=== PATIENT | female | born 1950 | race Caucasian/White ===

== ENCOUNTER 2017-07-16 05:42 | Inpatient (IN) | payer OTHER ==
[2017-06-20 15:40] VITALS: BMI 29.0
--- NOTE | 2017-06-20 16:11 | PAT Medication Instructions ---
Service Date Jun 20, 2017. Current Home Medication List Albuterol Hfa (Ventolin Hfa), 2 PUFFS INH Q6H PRN for PRN Calcium W/ Vitamins D & K (Viactiv), 1 TAB PO BID Fluoxetine (Prozac), 20 MG PO HS Ibuprofen (Advil), 400 MG PO PRN Medication Instructions For Your Scheduled Surgery - Hold the following medications 7 days prior to surgery per your surgeon's instructions: Ibuprofen (Advil), 400 MG PO PRN - Hold the following medications the morning of surgery: Calcium W/ Vitamins D & K (Viactiv), 1 TAB PO BID - Take the following medications the morning of surgery with a sip of water: Albuterol Hfa (Ventolin Hfa), 2 PUFFS INH Q6H PRN for PRN (if needed, and bring it with you to the hospital) - Take the following medications as scheduled the night before surgery: Albuterol Hfa (Ventolin Hfa), 2 PUFFS INH Q6H PRN for PRN (if needed) Calcium W/ Vitamins D & K (Viactiv), 1 TAB PO BID Fluoxetine (Prozac), 20 MG PO HS If you have any questions please call us at [phone] or [phone] or [phone]
[2017-06-20 16:41] LABS: BASO % 0.7 %; BASO ABS # 0.05 K/uL (0-0.2); EOS ABS # 0.15 K/uL (0-0.5); HEMATOCRIT 42.4 % (37-47); HEMOGLOBIN 13.7 g/dL (12.0-16.0); IG# 0.01 K/uL (0.00-0.02); LYMPH % 35.6 %; LYMPH ABS # 2.64 K/uL (1.2-3.4); MEAN CELL VOLUME 86.4 fL (80-100); MEAN CORPUSCULAR HEMOGLOBIN 27.9 pg (25-34); MEAN CORPUSCULAR HGB CONC 32.3 g/dl (32-36); MEAN PLATELET VOLUME 10.9 fL (7.4-10.4); MONO % 7.7 %; MONO ABS # 0.57 K/uL (0.11-0.59); NEUT % 53.9 %; PLATELET COUNT 249 K/uL (130-400); RED CELL DISTRIBUTION WIDTH CV 13.2 % (11.5-14.5); RED CELL DISTRIBUTION WIDTH SD 42.1 fL (36.4-46.3); WHITE BLOOD COUNT 7.42 K/uL (4.8-10.8)
[2017-06-20 16:50] LABS: POTASSIUM 4.4 mmol/L (3.5-5.1)
--- NOTE | 2017-06-20 16:50 | DIAGNOSTIC IMAGING REPORT ---
TWO VIEW CHEST CLINICAL HISTORY: Preoperative examination. FINDINGS: PA and lateral chest radiographs are obtained. No prior studies are available for comparison at the time of dictation. The cardiomediastinal silhouette is unremarkable. There is mild atherosclerotic calcification of the thoracic aorta. The lungs and pleural spaces are clear. There is no pneumothorax. The skeletal structures are osteopenic. The bony thorax appears intact. IMPRESSION: No active disease in the chest. Electronically signed by: Lavon Nur M.D. 06/20/2017 4:49 PM Dictated Date/Time: 06/20/2017 4:49 PM
[2017-06-20 17:14] LABS: CALCIUM 8.7 mg/dl (8.5-10.1); CREATININE 0.99 mg/dl (0.60-1.20)
[~2017-07-16] VITALS: Ht 152.4 cm; Wt 67.3 kg
[2017-07-16] VITALS (10 sets, daily range): BP systolic 105–157; BP diastolic 60–94; PULSE 60–74; TEMP 36.4–36.9; O2SAT 94–100; Ht 152.4 cm; Wt 67.3 kg
[~2017-07-16 05:42] MED LIST: CALC8.5C PO; FLUO20CA35 PO; IBUP-1050 PO; VNTHFA/IN INH
[2017-07-16] MEDS ORDERED: CEFAZOLIN 1000MG IV PUSH 7.5 ML IV SCH (06:00)
[2017-07-16] MEDS ORDERED: LACTATED RINGER'S 1000ML 1,000 ML IV SCH (06:00)
[2017-07-16] MEDS ORDERED: MIDAZOLAM HCL 1 MG/ML 2ML VIAL ONE (06:47)
[2017-07-16] MEDS ORDERED: FENTANYL CITRATE INJ 50 MCG/1 ML 2 ML VIAL ONE ×3 (06:47→08:50)
[2017-07-16] MEDS ORDERED: BUPIVACAINE/EPINEPHRINE 0.5% MPF 1:200,000 30 ML VIAL ONE (06:52)
[2017-07-16] MEDS ORDERED: BACITRACIN 50000 UNIT VIAL ONE (06:52)
--- NOTE | 2017-07-16 07:21 | History & Physical Bridge Note ---
H&P Re-Evaluation Bridge Note: I have examined the patient, reviewed the History & Physical and in the interval since the performance of the History & Physical I have noted the following changes of clinical significance: No changes noted
--- NOTE | 2017-07-16 07:22 | History and Physical ---
History & Physical Date Jul 16, 2017. 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, 07/16/17) Home Medications Scheduled Calcium W/ Vitamins D & K (Viactiv), 1 TAB PO BID Fluoxetine (Prozac), 20-40 MG PO HS Ibuprofen (Advil), 400 MG PO PRN Scheduled PRN Albuterol Hfa (Ventolin Hfa), 2 PUFFS INH Q6H PRN for PRN Physical Examination Skin: warm/dry, no rash Eyes: normal inspection, EOMI, sclerae normal ENT: normal ENT inspection, pharynx normal Head: normocephalic, atraumatic Neck: supple, no adenopathy, trachea midline Respiratory/Chest: lungs clear, normal breath sounds, no respiratory distress Cardiovascular: regular rate, rhythm, no edema, no murmur Abdomen / GI: normal bowel sounds, non tender Back: normal inspection Extremities: normal inspection, normal range of motion Neurologic/Psych: no motor/sensory deficits, alert, normal reflexes, oriented x 3 Diagnosis Lumbar spinal stenosis Plan of Treatment L3-S1 decompression and fusion
[2017-07-16] MEDS ORDERED: HYDROmorphone INJ 2 MG/ML SYR/VIAL ONE ×2 (07:54→09:53)
[2017-07-16] MEDS ORDERED: ATROPINE SULFATE 0.1 MG/ML 5ML SYR IV PRN (08:15)
[2017-07-16] MEDS ORDERED: FENTANYL CITRATE INJ 50 MCG/1 ML 2 ML VIAL IV PRN (08:15)
[2017-07-16] MEDS ORDERED: EpHEDrine SULFATE INJ 50 MG/ML AMP IV PRN (08:15)
[2017-07-16] MEDS ORDERED: ONDANSETRON INJ 2 MG/ML 2 ML VIAL IV PRN (08:15)
[2017-07-16] MEDS ORDERED: PROMETHAZINE HCL INJ 6.25 MG in SODIUM CHLORIDE 0.9% 50ML 50 ML IV PRN (08:15)
[2017-07-16] MEDS ORDERED: HYDROmorphone INJ 0.5 MG/0.5 ML SYR IV PRN (08:15)
[2017-07-16] MEDS ORDERED: LIDOCAINE HCL 2% 2 ML VIAL (20MG/ML) ONE (08:34)
[2017-07-16] MEDS ORDERED: ONDANSETRON INJ 2 MG/ML 2 ML VIAL ONE ×2 (08:34→09:58)
[2017-07-16] MEDS ORDERED: RANITIDINE HCL 25 MG/ML INJ ONE (08:34)
[2017-07-16] MEDS ORDERED: DEXAMETHASONE SOD INJ 4 MG/ML VIAL ONE (08:34)
[2017-07-16] MEDS ORDERED: PROPOFOL IV EMULSION 10 MG/ML 20 ML VIAL IV ONE (08:34)
[2017-07-16] MEDS ORDERED: FLOSEAL HEMOSTATIC MATRIX 10ML TOP ONE (09:39)
--- NOTE | 2017-07-16 09:48 | DIAGNOSTIC IMAGING REPORT ---
LUMBAR SPINE 2 OR 3 VIEW CLINICAL HISTORY: 67 years-old Female presenting with L3-S1 DECOMPRESSION/FUSION. TECHNIQUE: 2 fluoroscopic spot image(s) obtained as part of an intraoperative procedure. COMPARISON: None. FINDINGS/IMPRESSION: Bilateral transpedicular screw and sania fixation of L3-S1 with interbody spacer at L4-5. Slight anterolisthesis of L4 on L5 suggested. Laminectomy defects of L4-5. Please see surgical report for further details. Fluoroscopy dosage (mGy): 26.25. Fluoroscopy time: 30.3 seconds. Number of fluoroscopic spot images: 2. Electronically signed by: Nemesio Bautista M.D. 07/16/2017 9:47 AM Dictated Date/Time: 07/16/2017 9:46 AM
[2017-07-16] MEDS ORDERED: ESMOLOL HCL 10 MG/ML 10 ML VIAL ONE (09:58)
[2017-07-16] MEDS ORDERED: GLYCOPYRROLATE INJ 0.2 MG/ML VIAL ONE (09:58)
[2017-07-16] MEDS ORDERED: NEOSTIGMINE METHYLSULFATE 1 MG/ML 10ML VIAL ONE (09:58)
[2017-07-16] MEDS ORDERED: SODIUM CHLORIDE 0.9% 1000ML 1,000 ML IV SCH (09:58)
--- NOTE | 2017-07-16 09:58 | [facility] Operative Report ---
Operative Report Operative Date Jul 16, 2017. Pre-Operative Diagnosis Lumbar Spinal Stenosis L3-S1 Post-Operative Diagnosis Lumbar Spinal Stenosis L3-S1 Procedure(s) Performed 1. Lumbar decompression medial facetectomies foraminotomies L3-4 L4-5 L5-S1. #2 posterior spinal fusion L3-4 L4-5 L5-S1. #3 placement of posterior segmental instrumentation L3-4 L4-5 L5-S1. #4 interbody fusion L4-5. #5 placement peek cage t 10 x 22 mm at L4-5. #6 history of locally harvested Deleon's allograft in the posterior lateral gutters. #7 placement InFUSE collagen sponge, with master graft in the posterior gutters and ostial amp bone graft in the interbody space. Surgeon Dr. Lee Solid Waste Engineer Surgeon(s) none Estimated Blood Loss 400 ml Findings Severe spinal stenosis Specimens none per surgeon Anesthesia Type General Description of Procedure Patient was met with preoperatively case discussed all questions addressed. After informed consent obtained patient was taken back to the operative suite underwent intubation and placed in the prone position on the Issac table on top of the Mateo frame. All bony prominences were well-padded eyes inspected to ensure no external pressure placed upon the. This point the lumbar spine was prepped and draped in the normal sterile fashion. Sharp dissection with the assistance of Bovie cautery was performed down to and exposing the lamina and transverse processes of L3-L4-L5 and sacral ala bilaterally. From a caudal cephalad fashion complete laminectomy of L5 L4 and L3 was performed addressing severe lateral recess and foraminal stenosis. Pedicle screws were then placed in L3-L4-L5 S1 levels bilaterally and the appropriate size sania placed. Through a transforaminal approach on the right complete discectomy of L4-5 was performed endplates created to subcortical bleeding bone and a 10 x 22 mm peek cage filled with OsteoSet bone graft tapped in position. The rods were then locked in final position bilaterally. Transverse processes of all 3 L4-L5 and sacral ala burred to subcortical bleeding bone. Infuse collagen sponge mass graft local harvested Deleon's allograft was placed in the posterior lateral gutters. 15 round YANDEL drain inserted. Incision closed with 1 Vicryl fascia 2-0 Vicryl simultaneously 4-0 Monocryl for final skin closure Steri-Strips sterile dressings placed. Patient will continue to PACU stable condition. I attest to the content of the Intraoperative Record and any orders documented therein. Any exceptions are noted below.
[2017-07-16] MEDS ORDERED: PROMETHAZINE HCL INJ 12.5 MG in SODIUM CHLORIDE 0.9% 50ML 50 ML IV PRN (10:00)
[2017-07-16] MEDS ORDERED: LORAZEPAM INJ 0.5 MG in SYRINGE 0.75 ML IV PRN (10:00)
[2017-07-16] MEDS ORDERED: BISACODYL 10 MG SUPP PR PRN (10:00)
[2017-07-16] MEDS ORDERED: hydrOXYzine HCL 25 MG TAB PO PRN (10:00)
[2017-07-16] MEDS ORDERED: DO NOT ADMINISTER PNEUMOCOCCAL VACCINE PRN (10:00)
[2017-07-16] MEDS ORDERED: ACETAMINOPHEN IV 100 ML IV PRN (10:00)
[2017-07-16] MEDS ORDERED: DO NOT ADMINISTER FLU VACCINE PRN (10:00)
[2017-07-16] MEDS ORDERED: MAGNESIUM HYDROXIDE SUSP 30 ML UDC PO PRN (10:00)
[2017-07-16] MEDS ORDERED: SOD PHOSPHATE/SOD BIPHOSPHATE ENEMA 132 ML BTL PR PRN (10:00)
[2017-07-16] MEDS ORDERED: FAMOTIDINE 20 MG TAB PO PRN (10:00)
[2017-07-16] MEDS ORDERED: METOCLOPRAMIDE HCL INJ 5 MG/ML 2 ML VIAL IV PRN (10:00)
[2017-07-16] MEDS ORDERED: LORAZEPAM 0.5 MG TAB PO PRN (10:00)
[2017-07-16] MEDS ORDERED: ACETAMINOPHEN 500 MG TAB PO PRN (10:00)
[2017-07-16] MEDS ORDERED: ALBUTEROL HFA 8 GM INHALER INH PRN (10:00)
[2017-07-16] MEDS ORDERED: ALUMINUM/MAGNESIUM SUSP 30 ML UDC PO PRN (10:00)
[2017-07-16] MEDS ORDERED: NALOXONE HCL 0.4 MG/1 ML VIAL/CARP IV PRN ×2 (10:00)
[2017-07-16] MEDS ORDERED: HYDROmorphone HCL 0.5MG/ML 50 ML CASSETTE ONE (10:09)
[2017-07-16] MEDS: HYDROmorphone HCL 0.5MG/ML 50 ML CASSETTE IV PRN ×3 (10:22→22:20)
--- NOTE | 2017-07-16 10:46 | Anesthesiology Progress Note ---
Anesthesia Post Op Note Date & Time Jul 16, 2017 at 10:45 Vital Signs Pain Intensity: 5 Vital Signs Past 12 Hours Date Time Temp Pulse Resp B/P (MAP) Pulse Ox O2 Delivery O2 Flow Rate FiO2 07/16/17 10:30 74 16 137/79 100 Nasal Cannula 4 07/16/17 10:20 81 16 162/77 100 Oxymask 10 07/16/17 10:10 75 16 153/75 96 Oxymask 10 07/16/17 10:04 36. 96 16 156/80 96 Oxymask 10 07/16/17 06:18 36.6 60 20 157/94 99 Room Air Notes Mental Status: alert / awake / arousable, participated in evaluation Pt Amnestic to Procedure: Yes Nausea / Vomiting: adequately controlled Pain: adequately controlled Airway Patency, RR, SpO2: stable & adequate BP & HR: stable & adequate Hydration State: stable & adequate Anesthetic Complications: no major complications apparent
[2017-07-16] MEDS: SODIUM CHLORIDE 0.9% 1000ML 1,000 ML IV SCH ×3 (12:23→22:42)
[2017-07-16] MEDS: CEFAZOLIN IV 1,000 MG in SYRINGE 0 ML IV SCH ×2 (15:34→23:50)
[2017-07-16] MEDS: ONDANSETRON INJ 2 MG/ML 2 ML VIAL IV PRN (17:30)
[2017-07-16] MEDS: DOCUSATE SODIUM/SENNA 50/8.6MG TAB PO SCH (21:00)
[2017-07-16] MEDS: FLUOXETINE HCL 20 MG CAP PO SCH (21:00)
[2017-07-17 03:03] VITALS: BP 111/64; PULSE 85; TEMP 36.9; O2SAT 97
[2017-07-17] MEDS ORDERED: DC PCA SCH (06:00)
[2017-07-17] MEDS ORDERED: HYDROmorphone INJ 0.5 MG/0.5 ML SYR IV PRN (06:00)
[2017-07-17] MEDS ORDERED: HYDROmorphone INJ 2 MG/ML SYR/VIAL IV PRN (06:00)
[2017-07-17] MEDS ORDERED: NURSING DECISION MEDICATION ORDER SCH (06:00)
[2017-07-17 06:25] LABS: BASO % 0.1 %; BASO ABS # 0.01 K/uL (0-0.2); EOS % 0.2 %; EOS ABS # 0.02 K/uL (0-0.5); HEMATOCRIT 28.7 % (37-47); HEMOGLOBIN 9.4 g/dL (12.0-16.0); IG# 0.02 K/uL (0.00-0.02); LYMPH % 14.6 %; LYMPH ABS # 1.46 K/uL (1.2-3.4); MEAN CELL VOLUME 86.2 fL (80-100); MEAN CORPUSCULAR HEMOGLOBIN 28.2 pg (25-34); MEAN CORPUSCULAR HGB CONC 32.8 g/dl (32-36); MEAN PLATELET VOLUME 10.8 fL (7.4-10.4); MONO % 9.3 %; MONO ABS # 0.93 K/uL (0.11-0.59); NEUT % 75.6 %; NEUT ABS # 7.57 K/uL (1.4-6.5); PLATELET COUNT 187 K/uL (130-400); RED CELL DISTRIBUTION WIDTH CV 13.8 % (11.5-14.5); RED CELL DISTRIBUTION WIDTH SD 44.1 fL (36.4-46.3); WHITE BLOOD COUNT 10.01 K/uL (4.8-10.8)
[2017-07-17 07:01] LABS: CALCIUM 7.9 mg/dl (8.5-10.1); CREATININE 0.69 mg/dl (0.60-1.20); POTASSIUM 4.1 mmol/L (3.5-5.1)
--- NOTE | 2017-07-17 07:07 | Clinical Documentation Query ---
GEOVANNA Sandy : CLINICAL DOCUMENTATION QUERY Patient is a 67 year old female who on 07/16 underwent lumbar decompression and posterior spinal and interbody fusion. Preoperative H&H was 13.7 g/dl and 42.4%. POD #1, repeat values are 9.4 g/dl and 28.7%. Operative blood loss was 400 ml's with subsequent losses of an additional 370 ml's to date. Additionally, net I/O positive for 2 liters. As appropriate, consider documentation as suggested below. In your clinical opinion is this patient being managed for: ( x ) Acute blood loss and hemodilutional anemia ( ) Not Agree ( ) Other explanation of clinical findings (Please Explain) ( ) Unable to determine (Please Define) ( ) Need to Discuss The medical record reflects the following clinical findings, treatment, and risk factors. Clinical Indicators: As above Treatment: Serial hematology, I/O including drain outputs Risk Factors: Acute perioperative blood losses, IVF administration. Please clarify and document your clinical opinion in the progress notes and discharge summary. Terms such as "probable", "suspected", "likely", "questionable", "possible", or "still to be ruled out" are acceptable. IF IN AGREEMENT, YOU MUST DOCUMENT ABOVE DIAGNOSTIC STATEMENT IN DAILY PROGRESS NOTES AND DISCHARGE SUMMARY. This document is not part of the patient's record. Thank You, George Haas, BELEM [phone]
[2017-07-17 07:15] VITALS: BP 112/65; PULSE 67; TEMP 37; O2SAT 96
[2017-07-17] MEDS: OXYCODONE HCL IR 5 MG TAB (IMMEDIATE RELEASE) PO PRN (08:42)
--- NOTE | 2017-07-17 10:48 | Anesthesiology Progress Note ---
Anesthesia Post Op Note Date & Time Jul 17, 2017 at 10:47 Vital Signs Vital Signs Past 12 Hours Date Time Temp Pulse Resp B/P (MAP) Pulse Ox O2 Delivery O2 Flow Rate FiO2 07/17/17 08:18 Room Air 07/17/17 07:15 37.0 67 16 112/65 (81) 96 Room Air 07/17/17 03:03 36.9 85 17 111/64 (80) 97 Room Air 07/16/17 23:04 36.9 71 16 106/62 (77) 94 Room Air 07/16/17 23:00 Room Air Notes Mental Status: alert / awake / arousable, participated in evaluation Pt Amnestic to Procedure: Yes Nausea / Vomiting: adequately controlled Pain: adequately controlled Airway Patency, RR, SpO2: stable & adequate BP & HR: stable & adequate Hydration State: stable & adequate Anesthetic Complications: no major complications apparent
[2017-07-17 11:25] VITALS: BP 134/71; PULSE 65; TEMP 36.8; O2SAT 96
--- NOTE | 2017-07-17 14:23 | Progress Note ---
Progress Note Date of Service Jul 17, 2017. Progress Note Patient's back pain is controlled. She is struggling with some nausea. She denies any leg pain. Back pain is well controlled. On exam she has good strength testing is comfortable while lying in bed. Assessment status post multilevel lumbar decompression fusion per plan at this time for advance transitions and therapy as tolerated. Hopefully she will improve and be able to be discharged home the next few days.
[2017-07-17 15:14] VITALS: BP 126/68; PULSE 67; TEMP 37.2; O2SAT 96
[2017-07-17] MEDS: KETOROLAC TROMETHAMINE 15 MG/ML VIAL IV. PRN ×2 (15:26→20:54)
[2017-07-17] MEDS: FLUOXETINE HCL 20 MG CAP PO SCH (20:54)
[2017-07-17] MEDS: DOCUSATE SODIUM/SENNA 50/8.6MG TAB PO SCH (20:54)
[2017-07-17 23:12] VITALS: BP 143/75; PULSE 77; TEMP 37.4; O2SAT 95
[2017-07-18] MEDS ORDERED: POLYETHYLENE (MIRALAX) 17 GM PACK PO SCH (06:00)
[2017-07-18 07:15] VITALS: BP 156/80; PULSE 74; TEMP 37.4; O2SAT 97
[2017-07-18] MEDS: ONDANSETRON INJ 2 MG/ML 2 ML VIAL IV PRN ×2 (07:37→13:01)
[2017-07-18] MEDS ORDERED: NURSING DECISION MEDICATION ORDER SCH (08:45)
--- NOTE | 2017-07-18 10:26 | Progress Note ---
Progress Note Date of Service Jul 18, 2017. Progress Note Patient still struggling with quite a bit of nausea. Pain overall is well controlled. Leg symptoms markedly improved. She denies any headaches. On exam she is comfortable at this time. She has good strength testing to the lower extremities. Assessment status post lumbar decompression fusion. Plan at this time we will try to advance physical therapy today. She is going to continue to withhold narcotic medications. She is taking mostly Tylenol and Toradol for pain.
[2017-07-18 15:27] VITALS: BP 174/80; PULSE 79; TEMP 36.8; O2SAT 97
[2017-07-18 15:55] VITALS: O2SAT 97
[2017-07-18] MEDS: DOCUSATE SODIUM/SENNA 50/8.6MG TAB PO SCH (20:59)
[2017-07-18] MEDS: FLUOXETINE HCL 20 MG CAP PO SCH (21:00)
[2017-07-18 23:10] VITALS: BP 145/74; PULSE 75; TEMP 37.1; O2SAT 95
[2017-07-19] MEDS: OXYCODONE HCL IR 5 MG TAB (IMMEDIATE RELEASE) PO PRN ×2 (05:04→13:58)
[2017-07-19 07:10] VITALS: BP 118/69; PULSE 71; TEMP 36.8; O2SAT 96
[2017-07-19] MEDS ORDERED: RXC5 PO (10:16)
--- NOTE | 2017-07-19 10:16 | Discharge Instructions ---
Discharge Instructions Date of Service Jul 19, 2017. Admission Reason for Admission: Spinal Stenosis Discharge Discharge Diagnosis / Problem: lumbar stenosis Discharge Goals Goal(s): Improve function Activity Recommendations Activity Limitations: per Instructions/Follow-up section . Instructions / Follow-Up Instructions / Follow-Up ACTIVITY RECOMMENDATIONS: SELF CARE INSTRUCTIONS AFTER THORACIC/LUMBAR FUSIONS 1. You may walk to your tolerance. It is good exercise for your legs and back. Expect some back and intermittent leg aches and pains. 2. You may perform "counter-top" level activities (make a sandwich, rafael with a project, etc.). 3. No bending or lifting of more than 10 pounds or back twisting of any nature (roll like a log when turning in bed). 4. You may ride in a car for 20-30 minutes at a time. No driving until after your first visit with your doctor. 5. Frequent changes of position and restricting sitting to 30 minutes at a time will help limit the amount of back spasms and stiffness you may experience. 6. You may discontinue the use of ambulatory aids (cane, crutches, etc.) once your strength and confidence allow. 7. You may machine sign writer the shower and let water strike your incision when you arrive home at least once daily. Do not take a tub bath, sit in a hot tub or go into a swimming pool until after your first recheck in the office. SPECIAL CARE INSTRUCTIONS: VERY IMPORTANT TO READ AND REVIEW A. Your surgical incision has been closed with a cosmetic suture under the skin that will dissolve in about 6 weeks. In 14 days, you can use a pair of clean scissors and cut the suture that is left outside of the skin at the ends of your incision. 1. The small skin tapes can be removed 7 days after surgery if they have not fallen off by that point. 2. You may keep the wound open to air as much as possible to promote healing after post-op day number 5 unless told otherwise by your doctor. 3. If you think the wound looks like it is becoming infected (redness or worsening drainage) and/or you are experiencing fever, chill or worsening back pain and muscle spasms, contact the office so that we may evaluate you as soon as possible. B. Complications are uncommon, but please contact us if you have any signs or symptoms of: 1. wound infection (fever higher than 102.5 degrees F, redness, separation of wound, drainage, or increasing pain from the incision) 2. blood clots in legs (pain, swelling, redness and warmth in legs) 3. urinary tract infection (fever higher than 102.5 degrees F, burning upon urination or increased frequency of urination) 4. nerve problems (inability to walk on your toes or heels, numbness, loss of bowel or bladder control) 5. any other symptoms that concern you C. Please call the office at if you have any concerns or questions about your operation or recovery. D. No smoking! Smoking drastically decreases the chance of a solid fusion. E. Do not take any anti-inflammatory medications (Indocin, Advil, Motrin, Aspirin, Naprosyn, etc.) as these may inhibit the chance of a solid fusion. Tylenol is okay to take for pain. MANAGING PAIN AFTER SPINAL SURGERY 1. Narcotic medication is intended for short-term use and will be provided for surgical pain. Surgical pain usually lasts for a period of 4-6 weeks. Narcotic medication includes Percocet, Vicodin, Darvocet, Tylenol #3 or Lortab. 2. Longer-term pain is more appropriately treated with non-narcotic medication such as Tylenol ES. 3. Muscle spasm is not appropriately treated with narcotics. Muscle relaxers such as Soma, Flexeril or Skelaxin can be used along with Tylenol ES. 4. Remember that we all live with some "aches and pains". This is not unusual or uncommon after an injury or as we get older. a. Back pain is expected and may include muscle spasms for 4 to 6 weeks after surgery. The pain should gradually improve. If the pain worsens for no apparent reason, please contact the office. b. Intermittent leg pain may also be experienced and should not be concerned about unless it worsens for no apparent reason. If so, please contact the office. 5. We will provide appropriate medication within the normal guidelines of their prescribed use. We will also be very cautious and aware of potential abuse and extended duration of patients' medication needs. a. Pain medications are for your comfort and to assist with sleep and rest so that the tissue can heal. They are not provided in order to return to normal activity and should not be used through the day. To do so or worsening pain at night can result from ongoing tissue damage and development of tolerance to the prescribed medicine. 6. Please allow 2-3 days to process refills. Prescriptions will not be mailed but must be picked up at the office. FOLLOW UP VISIT: Keep your scheduled follow-up appointment. Any questions, please call the office at . Current Hospital Diet Patient's current hospital diet: Regular Diet Discharge Diet Recommended Diet: Regular Diet Procedures Procedures Performed: 1. Lumbar decompression medial facetectomies foraminotomies L3-4 L4-5 L5-S1. #2 posterior spinal fusion L3-4 L4-5 L5-S1. #3 placement of posterior segmental instrumentation L3-4 L4-5 L5-S1. #4 interbody fusion L4-5. #5 placement peek cage t 10 x 22 mm at L4-5. #6 history of locally harvested Deleon's allograft in the posterior lateral gutters. #7 placement InFUSE collagen sponge, with master graft in the posterior gutters and ostial amp bone graft in the interbody space. Pending Studies Studies pending at discharge: no Medical Emergencies . Who to Call and When: Medical Emergencies: If at any time you feel your situation is an emergency, please call 911 immediately. . Non-Emergent Contact Non-Emergency issues call your: Primary Care Provider . "Provider Documentation" section prepared by Anant Lee. .
--- NOTE | 2017-07-19 13:20 | Discharge Summary ---
Orthopedic Discharge Summary Admission Date/Reason Jul 16, 2017 at 07:30 Spinal Stenosis. Discharge Date/Disposition Jul 19, 2017 Home Diagnosis Principal Diagnosis: Lumbar spinal stenosis Admission Physical Exam As per Admitting History & Physical. Hospital Course Patient underwent lumbar decompression and fusion tolerated as well as taken to the orthopedic floor postoperatively. Postop day #1 she was up and ambulatory but struggling with significant nausea. This progressed the postop day #2. On postop day #3 she improved dramatically YANDEL drain decreased appropriately subsequently discharged home. Discharge orders and instructions found in the chart for further review. Discharge Instructions Please refer to the electronic Patient Visit Report (Discharge Instructions) for additional information.
[2017-07-19 13:41] VITALS: BP 118/69; PULSE 71; TEMP 36.8; O2SAT 96
== END 2017-07-19 14:06 | disposition home health service (06) | DRG 455 ==
LOC: C.ACU 05:42 → C.3E 07:30 → ENRESERV 10:35
PROVIDERS: ADMIT Orthopaedic Surgery Orthopaedic Surgery of the Spine; ATTEND Orthopaedic Surgery Orthopaedic Surgery of the Spine
PROC: 0ST20ZZ Resection of Lumbar Vertebral Disc, Open Approach (ICD-10-PCS; principal; 2017-07-16 07:45)
PROC: 0SG00AJ Fusion of Lumbar Vertebral Joint with Interbody Fusion Device, Posterior Approach, Anterior Column, Open Approach (ICD-10-PCS; principal; 2017-07-16 07:45)
PROC: 0SG1071 Fusion of 2 or more Lumbar Vertebral Joints with Autologous Tissue Substitute, Posterior Approach, Posterior Column, Open Approach (ICD-10-PCS; principal; 2017-07-16 07:45)
PROC: 0SG3071 Fusion of Lumbosacral Joint with Autologous Tissue Substitute, Posterior Approach, Posterior Column, Open Approach (ICD-10-PCS; principal; 2017-07-16 07:45)
DX: M48.061 Spinal stenosis, lumbar region without neurogenic claudication (principal); R11.0 Nausea; F32.9 Major depressive disorder, single episode, unspecified; F41.9 Anxiety disorder, unspecified; Z79.899 Other long term (current) drug therapy; Z88.1 Allergy status to other antibiotic agents; Z88.2 Allergy status to sulfonamides; Z88.8 Allergy status to other drugs, medicaments and biological substances; Z90.49 Acquired absence of other specified parts of digestive tract; Z98.890 Other specified postprocedural states